=== PATIENT | female | born 1930 | race Caucasian/White ===

== ENCOUNTER 2016-12-09 09:52 | Outpatient (CLI) | payer MEDICARE, OTHER ==
[2016-12-09] VITALS (9 sets, daily range): BP systolic 104–186; BP diastolic 41–96; PULSE 48–54; TEMP 97.8
[~2016-12-09] VITALS: Ht 157.5 cm; Wt 65.9 kg
[~2016-12-09 09:52] MED LIST: ADVAIR 250/28 DISKU1 IH; ALBUTEROL0.83 MG/ML IH; ALTACE 5MG5 MG PO; ARICEPT10 MG PO; ASPIRIN 32325 MG/TAB PO; ATROVENT I0.2 MG/1 M IH; CALCIUM CITRAT200 MG PO; CALTRATE 600600 MG PO; CITALOPRAM40 MG PO; COZAAR100 MG PO; DETROL LA4 PO; DITROPAN XL10 MG PO; DOXYCYCLINE 10100 MG PO; DUO-KAPS1 CAP PO; EFFEXOR XR75 MG/CAP PO; FOSAMAX 70MG TA70 MG PO; FOSAMAX PO; FOSAMAX5 MG; GENTAMICIN180 MG/502 NS; LEVAQUIN 5500 MG/TA1 PO; LIDODERM PATCH TP; LORTAB 5/500 501 TAB PO; MELOXICAM PO; MIACALCIN NASA3.7 ML IH; MOBIC 7.5MG7.5 MG PO; MUCOMYST 20200 MG/M1 IH; MULTI VITAMINS1 TAB PO; PANTOPRAZOLE40 MG PO; PLAVIX 75MG TAB75 MG PO; POLY-IRON 150150 MG PO; PREDNISONE20 MG PO; PROAIR HFA0.09 MG/AC IH; PROTONIX 40MG T40 MG PO; RT ADVAIR 228 DISKUS IH; RT SPIRIVA18 MCG IH; SINGULAIR 110 MG/TAB PO; SINGULAIR10 MG PO; TIROSINT25 MCG PO; TOPROL XL 50MG50 MG PO; TYLENOL 500MG500 MG PO; TYLENOL EXTRA500 M1 PO; TYLENOL PM EXTR1 TA1 PO; VENTOLIN0.09 MG IH; VITAMIN D32000 IU PO; ZOCOR 10MG10 MG PO; ZOCOR10 MG PO; [UNRECOGNIZED DRUG - OTHER] PO
[2016-12-09] MEDS ORDERED: NORVASC2.5 MG PO (11:25)
[2016-12-09] MEDS ORDERED: K-TAB10 PO (11:26)
[2016-12-09] MEDS ORDERED: SYNTHROID 0.0.025 MG PO (11:35)
[2016-12-09] MEDS ORDERED: HCTZ 25MG TAB25 MG PO (11:42)
[2016-12-09] MEDS ORDERED: MACROBID 1100 MG/CAP PO (11:46)
[2016-12-09] MEDS ORDERED: CALCIUM 600MG+D1 TAB PO (11:46)
[2016-12-09] MEDS ORDERED: CLEOCIN HCL300 MG PO (11:48)
[2016-12-09] MEDS ORDERED: ULTRAM 50MG TAB50 MG PO (11:58)
== END 2016-12-09 16:36 | disposition home or self-care (01) ==
LOC: COL.CAR 09:52
DX: M80.08XA Age-related osteoporosis with current pathological fracture, vertebra(e), initial encounter for fracture (principal); C18.9 Malignant neoplasm of colon, unspecified; M19.90 Unspecified osteoarthritis, unspecified site; I10 Essential (primary) hypertension; J45.909 Unspecified asthma, uncomplicated; J44.9 Chronic obstructive pulmonary disease, unspecified; F03.90 Unspecified dementia, unspecified severity, without behavioral disturbance, psychotic disturbance, mood disturbance, and anxiety; Z79.01 Long term (current) use of anticoagulants; Z90.49 Acquired absence of other specified parts of digestive tract
CPT/HCPCS: C1713; J2250; J3010; J7120

== ENCOUNTER 2018-11-26 07:29 | Outpatient (CLI) | payer MEDICARE, OTHER ==
[~2018-11-26] VITALS: Ht 157.5 cm; Wt 74.0 kg
[~2018-11-26 07:29] MED LIST changes: +CALCIUM 600MG+D1 TAB PO; +CLEOCIN HCL300 MG PO; +HCTZ 25MG TAB25 MG PO; +K-TAB10 PO; +MACROBID 1100 MG/CAP PO; +NORVASC2.5 MG PO; +SYNTHROID 0.0.025 MG PO; +ULTRAM 50MG TAB50 MG PO
[2018-11-26] MEDS ORDERED: TYLENOL 500MG500 MG PO (08:40)
[2018-11-26] MEDS ORDERED: COLACE 100100 MG/CAP PO (08:42)
[2018-11-26] MEDS ORDERED: FENTANYL 25 MCG TD (08:47)
[2018-11-26] MEDS ORDERED: MAG-OX 400400 MG/TAB PO (08:53)
[2018-11-26] MEDS ORDERED: POLYSACC IRON150 MG PO (08:59)
[2018-11-26] MEDS ORDERED: SYNTHROID 0.0.025 MG PO (09:00)
[2018-11-26] MEDS ORDERED: TRELEGY ELLIPT1 EACH IH (09:01)
[2018-11-26] MEDS ORDERED: AQUAPHOR BABY HEA41% TP (09:03)
[2018-11-26] MEDS ORDERED: MILK OF MA400 MG/52 PO (09:04)
[2018-11-26] MEDS ORDERED: ZOFRAN 4MG T4 MG/TAB PO (09:05)
[2018-11-26 09:10] VITALS: BP 182/79; PULSE 73; TEMP 98.1
--- NOTE | 2018-11-26 09:40 | NUR ---
Report called to Jasmyn at [facility]-vertebroplasty cancelled. Pt discharged per w/c by nurse with daughter.
== END 2018-11-26 09:48 | disposition home or self-care (01) ==
LOC: COL.CAR 07:29
DX: S22.060A Wedge compression fracture of T7-T8 vertebra, initial encounter for closed fracture (principal); Z53.8 Procedure and treatment not carried out for other reasons; Z88.2 Allergy status to sulfonamides